=== PATIENT | female | born 1985 | race Caucasian/White ===

== ENCOUNTER 2017-03-11 16:17 | Observation (INO) ==
[2017-03-11] MEDS ORDERED: ACETAMINOPHEN 325 MG TABLET PO PRN (17:26)
[2017-03-11] MEDS ORDERED: ONDANSETRON 4 MG/2 ML VIAL IV PRN (17:28)
[2017-03-11] MEDS ORDERED: SODIUM CHLORIDE 0.9% 1,000 ML IV SCH (17:30)
--- NOTE | 2017-03-11 18:01 | Family Practice History&Phys ---
Assessment and Plan (1) Pelvic pain Status: Acute Current Visit: Yes (2) Anxiety about health Status: Acute Current Visit: Yes (3) Febrile illness Status: Acute Current Visit: Yes History of Present Illness Chief complaint: Pelvic pain, failed outpatient therapy History of present illness: Ms. Dexter Mayfield is a 31 year old female Who came to see me on 03/08/2017. At that time she was complaining that she had had right lower extremity swelling. She showed me a picture of this at the time and it was significantly swollen about 2-3+. Her leg on exam however was almost perfectly normal. She had no swelling. She was concerned about why this happened. She had no pain at that time. But did seem to be very anxious. Admits that she has had a fever over the last couple of months off and on and that she has had some pain in the same leg off and on as well. Again there was no swelling appreciated at that initial visit. She had no rash and no other real complaints except for occasional lightheadedness and mild fatigue with increased thirst. She was also concerned about diabetes as there was a strong family history. I checked for this and she was negative. She was not taking any control pills has no history of venous thrombosis and she also denied any known infection or exposure to ticks or mosquitoes at the time. She does have 3 children that she takes care of by herself. Gets very little support from her ex-'s and she is dating somebody now. States that she has not been sexually active and got all for. Yesterday I did check a urine which was negative. She had no other constitutional symptoms. She came back 2 days later complaining of worsening pain with increased fevers although her temperature in our clinic was perfectly normal and her vital signs were stable. She had no rash no other symptoms except for mild infraumbilical pain. On exam she was slightly tender to palpation of the area and felt like a pelvic exam was warranted which we did. On exam it was noted that her cervix was extremely posterior and with digital palpation she was extremely tender but only equivocally at the cervix. She had more tenderness anteriorly. No vaginal discharge per patient nor did I see any. She had just recently gotten off her period, this past Wednesday. Because of her tenderness in the pelvic area I felt like we should at least attempt to treat her for pelvic inflammatory disease which I did. Also set her up for a ultrasound today which was done and the life support technician stated that she was extremely tender with exam. Lab that I ana 2 days ago revealed a normal CBC, normal CMP, urinalysis which was negative, negative JAMIE, negative d-dimer, hemoglobin A1c of 4.7, Ebstein Good virus negative, TSH was slightly low (do not have the results in front of me), urine negative. Because patient is failed outside therapy will admit her to the hospital, get CT scan repeat some lab and consult appropriate specialty in the morning. Will treat palliatively for pain tonight monitor closely. Should be noted her vital signs have been stable. Differentials include endometriosis, ovarian cyst, pelvic infection, pelvic thrombosis, possible oncological source. Home Medications Medication Instructions Recorded Confirmed Type No Known Home Medications [No 03/11/17 03/11/17 History Known Home Medications] Allergies Allergy/AdvReac Type Severity Reaction Status Date / Time No Known Allergies Allergy Unverified 01/25/17 19:54 12 point system: reviewed and no additional remarkable complaints except as stated - Constitutional Constitutional: Present: as per HPI - EENT Ears: Absent: ear discharge Nose, mouth and throat: Absent: nasal congestion - Cardiovascular Cardiovascular: Absent: chest pain at rest, chest pain with activity - Respiratory Respiratory: Absent: cough, wheezing - Gastrointestinal Gastrointestinal: Present: abdominal pain (Suprapubic area). Absent: melena ( Hemoccult was negative in the clinic) - Genitourinary Genitourinary: Present: dysuria. Absent: abnormal vaginal bleeding, difficulty urinating, vaginal discharge - Musculoskeletal Musculoskeletal: Absent: arthralgias - Neurological Neurological: Present: as per HPI - Psychiatric Psychiatric: Present: anxiety Medical,Surgical,& Family Hx - Medical History Musculoskeletal: History of: Musculoskeletal Problems (gu[place]/pin right femur) Reproductive: History of: Reproductive Problems () - Surgical History Neurologic Surgeries: Surgical HX of: Neurologic Surgery (Non Maligant tumor removed) - Family History Family History: Reports;: Family Cancer (father), Family Diabetes (father) Denies;: Family Heart Disease, Family Hypertension - Social History Smoking Status: Never smoker Frequency of Alcohol Use: None Type of Drug Use: None Exam - Constitutional Vitals: Period Temp Pulse Resp BP Sys/Pisano Pulse Ox Last 24 Hr 99.9 F 93 18 121/70 95 Exam: Generally well-developed female is alert and oriented somewhat anxious concerning her situation HEENT essentially negative Cardiovascular rate regular no gallop or rub Lungs clear bilaterally no shortness of breath chest pain wheezing rales rhonchi Abdomen soft, tender in the suprapubic area. Negative McBurney point tenderness negative Will sign and negative left sided tenderness except that radiated to the suprapubic area. No Pelvic exam as noted above revealed severe tenderness with a posterior cervix. Did not have classical chandelier sign however. Extremities no clubbing no cyanosis or edema at present. Quality Measures - VTE Contraindication to Pharmacological VTE Prophylaxis: Clinical assessment deems Pt at low risk, no prophalaxis needed - Stroke Symptom Onset Unknown: No
[2017-03-11] MEDS: HYDROmorphone 2 MG/1 ML VIAL IV PRN ×2 (18:07→22:19)
[2017-03-11] MEDS: SODIUM CHLORIDE 0.9% 1,000 ML IV SCH (18:10)
[2017-03-11] MEDS: cefTRIAXone 1,000 MG in SODIUM CHLORIDE 0.9% 100 ML IV SCH (18:15)
[2017-03-11 18:23] LABS: Basophils % 0.2 % (0.0-0.8); Hematocrit 34.6 VOL% (35.7-47.0); Hemoglobin 11.2 GM/DL (12.0-16.0); Immature Granulocytes % 0.4 %; Immature Granulocytes Absolute 0.05 #; Lymphocytes # 0.8 10*3/uL (1.4-4.0); Lymphocytes % 6.9 % (21.3-54.2); Mean Corpuscular HGB Conc 32.4 GM/DL (32-36); Mean Corpuscular Hemoglobin 25 PG (27-34); Mean Corpuscular Volume 76.7 FL (87-102); Mean Platelet Volume 8.9 FL (9.6-12.0); Monocytes # 0.4 10*3/uL (0.11-0.8); Monocytes % 2.9 % (1.7-12.7); Neutrophils % 89.6 % (38.7-73.9); Platelet Count 265 T/CUMM (130-400); Red Blood Count 4.51 MC/CUMM (3.8-5.5); Red Cell Distribution Width 15.1 % (9.3-17.3); White Blood Count 12.2 T/CUMM (4-12)
[2017-03-11 18:44] LABS: Albumin 3.9 G/DL (3.4-5.0); Bilirubin,Total 0.9 MG/DL (0.2-1.0); Calcium 9.5 MG/DL (8.5-10.1); Osmolality,Calculated 278.3 MOS/KG (273-304); Potassium 3.9 MMOL/L (3.5-5.1); Total Protein 7.7 G/DL (6.4-8.3)
--- NOTE | 2017-03-11 19:48 | CT Report ---
Exam: CT abdomen pelvis wo/w con Date: 03/11/2017 5:32 PM Comparison: None Indication: Mid pelvic pain abdominal pain Total DLP: 676.5 mGy*cm Technical: No oral contrast was administered. Images were obtained from the lung bases to the iliac crest continuation through the pelvis without and with with 100 cc of Omnipaque 350 with axial sagittal coronal imaging available for review. Dose reduction was performed with decreasing kv and mA and automated exposure Findings: Lung bases: No obvious infiltrates or effusions present. Liver and Spleen: Liver hepatic and portal veins are unremarkable. Mild prominence of the spleen present. Gallbladder and Pancreas: Unremarkable Adrenals: Unremarkable Kidneys: Both kidneys are equally perfused and demonstrate no evidence for obstructive uropathy. The noncontrast study reveals faint calculi bilaterally without obstruction Stomach: Incomplete distended with air-fluid and debris Retroperitoneum: No enlarged lymph nodes. Aorta and IVC: Aorta is unremarkable. A retroaortic left renal vein is patent present a normal variant. Bowel and Mesentery: Moderate stool and debris present no evidence of diverticulosis or diverticulitis or evidence of appendicitis. Pelvis: Bladder: Partially demonstrated with contrast on delayed images. Fluid: No free fluid identified. Lymph nodes: No enlarged lymph nodes. Pelvic organs: Uterus is deviated towards the left. Some thickening of the endometrial is present. Ovarian cystic changes are present bilaterally measuring up to 3.6 and 3.2 cm right, left respectively. Osseous structures: No suspicious appearing osseous abnormalities noted. Previous right hip intramedullary pinning Impression: 1. Bilateral ovarian cysts present. 2. Minimal splenic enlargement 3. Bilateral faint nephrocalcinosis without obstruction. PROCEDURE INTERPRETED AT [facility] DEPARTMENT OF RADIOLOGY Final Report Signed by: Dr. Walter Alvares
[2017-03-11] MEDS: oxyCODONE/ACETAMINOPHEN 5-325 MG TABLET PO PRN (20:41)
[2017-03-11] MEDS: DOCUSATE SODIUM 100 MG CAPSULE PO SCH (20:41)
[2017-03-11 20:55] LABS: Apearance,Urine CLEAR (Clear); Bilirubin,Urine Negative (Negative); Blood, Urine Negative (Negative); Glucose,Urine (UA) Negative (Negative); Ketones,Urine Negative (Negative); Mucus,Urine Occasional /LPF (Occasional); Nitrite,Urine Negative (Negative); Protein,Urine Negative; Squamous Epithelial Cell,Urine Occasional /HPF (0-10); Urine Color Straw (Yellow); Urine Specific Gravity 1.041 (1.001-1.035); Urine Urobilinogen < 2.0 EU/DL (0.2-1.0); WBC,Urine <1 /HPF (0-6)
[2017-03-12] MEDS: HYDROmorphone 2 MG/1 ML VIAL IV PRN ×2 (01:57→05:34)
[2017-03-12] MEDS: SODIUM CHLORIDE 0.9% 1,000 ML IV SCH ×3 (02:03→17:16)
[2017-03-12] MEDS: DOCUSATE SODIUM 100 MG CAPSULE PO SCH ×2 (09:04→23:08)
[2017-03-12] MEDS: oxyCODONE/ACETAMINOPHEN 5-325 MG TABLET PO PRN ×3 (09:56→23:08)
--- NOTE | 2017-03-12 12:53 | Family Practice Progress Note ---
Family Practice - PN: Subj Interval history: Patient seen this morning. She was resting fairly well and has significant pain in her suprapubic area when he. A CT scan was noted. There were no real significant findings except for a bilateral cyst. My goal is to going get a gynecological consult for any further direction. I'm not convinced this is endometriosis but I suppose it could be interstitial cystitis. Her urinalysis was stone cold normal. Her lab revealed a slight elevation of absolute neutrophilic count only. We did do an ultrasound in the clinic which was somewhat incomplete due to pain. But there was only minimal free fluid. She did have follicular cyst of the ovaries with a small amount of free fluid in the cul-de-sac only. I appreciate gynecological specialty. Exam (Progress Note) - Constitutional Vitals: Period Temp Pulse Resp BP Sys/Pisano Pulse Ox Last 24 Hr 97.4 F-99.9 F 45-93 16-20 100-121/61-72 95-99 Exam: Generally well-developed female is alert and oriented somewhat anxious concerning her situation HEENT essentially negative Cardiovascular rate regular no gallop or rub Lungs clear bilaterally no shortness of breath chest pain wheezing rales rhonchi Abdomen soft, tender in the suprapubic area. No inguinal lymphadenopathy is appreciated. Patient voiding well Extremities no clubbing no cyanosis or edema at present. Neurologically fully intact cranial nerves and motor and sensory nerves Results - Labs CBC & BMP: 03/11/17 18:14 03/11/17 18:14 Assessment and Plan (1) Pelvic pain Status: Acute Assessment and plan: 03/12/17: Will get gynecological assistance only. Is difficult Current Visit: Yes (2) Anxiety about health Status: Acute Assessment and plan: 03/12/17: Patient does cry periodically due to "pain". The analgesics give her significant and "very good" relief Current Visit: Yes (3) Febrile illness Status: Acute Assessment and plan: 03/12/17: Afebrile at this time Current Visit: Yes Quality Measures - VTE Contraindication to Pharmacological VTE Prophylaxis: Clinical assessment deems Pt at low risk, no prophalaxis needed - Stroke Symptom Onset Unknown: No
[2017-03-12] MEDS: cefTRIAXone 1,000 MG in SODIUM CHLORIDE 0.9% 100 ML IV SCH (17:38)
--- NOTE | 2017-03-12 17:43 | Consultation ---
Assessment and Plan (1) IBS (irritable bowel syndrome) Status: Acute Assessment and plan: Trial of IM Bentyl overnight. Current Visit: Yes (2) Chronic interstitial cystitis Status: Acute Assessment and plan: Trial of bladder irrigation with solution to sooth bladder mucosa and Pyridium. Current Visit: Yes (3) Stress due to family tension Status: Acute Current Visit: Yes History of Present Illness - Data of Consult Consult date: 03/12/17 Requesting Physician: Loy Gruber - Consult Narrative Reason for consult: abdominal and pelvic pain History of present illness: Ms. Dexter Mayfield is a 31 year old female who has undergone several attempts at outpatient management of severe lower abdominal and pelvic pain and elevated temperature. She has been medically evaluated during this hospitalization along with pertinent lab and ultrasound, all of which are unremarkable. She describes her abdominal pain as being intermittent colicky in a severe enough to bring her to her knees. She also complains of a constant suprapubic burning pain. These have been most dominant during the last week although they have been present to a lesser degree and intermittently for about 3 months. She does admit to being under a stressful situation involving a divorce and child custody issues. CC: Loy Gruber, DO - Home Medications and Allergies Home Medications: Home Medications Medication Instructions Recorded Confirmed Type No Known Home Medications [No 03/11/17 03/11/17 History Known Home Medications] Allergies/Adverse Reactions: Allergies Allergy/AdvReac Type Severity Reaction Status Date / Time No Known Allergies Allergy Unverified 01/25/17 19:54 - Constitutional Constitutional: Present: fever(s) (Intermittent, states up to 103 with spontaneous resolution) - EENT Eyes: Present: as per HPI Nose, mouth and throat: Present: as per HPI - Cardiovascular Cardiovascular: Present: as per HPI. Absent: chest pain at rest, chest pain with activity, diaphoresis, dyspnea - Respiratory Respiratory: Absent: cough, dyspnea, dyspnea on exertion - Gastrointestinal Gastrointestinal: Present: abdominal pain (Described as diffuse, colicky and intermittent associated with severe pain during the peak of cramps.). Absent: constipation, diarrhea, vomiting - Genitourinary Genitourinary: Absent: abnormal vaginal bleeding, difficulty urinating, dysuria , flank pain, menorrhagia, urinary frequency, urinary hesitancy, urinary incontinence (She is having mildly irregular cycles with some dysmenorrhea. Her last menses was approximately 2 weeks ago. She denies deep penetration dyspareunia or dysmenorrhea.) - Musculoskeletal Musculoskeletal: Present: as per HPI - Neurological Neurological: Present: as per HPI - Psychiatric Psychiatric: Present: anxiety - Endocrine Endocrine: Present: as per HPI - Hematologic/Lymphatic Hematologic/Lymphatic: Present: as per HPI Medical,Surgical,& Family Hx - Medical History Musculoskeletal: History of: Musculoskeletal Problems ([place]/pin right femur) Reproductive: History of: Reproductive Problems () - Surgical History Neurologic Surgeries: Surgical HX of: Neurologic Surgery (Non Maligant tumor removed) - Family History Family History: Reports;: Family Cancer (father), Family Diabetes (father) Denies;: Family Heart Disease, Family Hypertension - Social History Smoking Status: Never smoker Frequency of Alcohol Use: None Type of Drug Use: None Exam - Constitutional Vitals: Period Temp Pulse Resp BP Sys/Pisano Pulse Ox Last 24 Hr 97.2 F-98.8 F 45-72 16-20 100-134/61-74 97-99 General appearance: mild distress - Head Head exam: Present: normal inspection - Neck Neck exam: Present: normal inspection - Respiratory Respiratory exam: Absent: accessory muscle use - Cardiovascular Cardiovascular exam: Present: regular rate and rhythm - GI/Abdominal GI/Abdominal exam: Present: distended, hyperactive bowel sounds, tenderness ( Tenderness is noted diffusely with some tympany), soft. Absent: rebound - Extremities Exam Extremities exam: Present: normal inspection - Back Exam Back exam: Present: normal inspection - Neurological Exam Neurological exam: Present: alert, oriented X3 - Psychiatric Psychiatric exam: Present: anxious - Skin Skin exam: Present: normal color, warm, dry Results - Labs CBC & BMP: 03/11/17 18:14 03/11/17 18:14 Quality Measures - VTE Contraindication to Pharmacological VTE Prophylaxis: Clinical assessment deems Pt at low risk, no prophalaxis needed - Stroke Symptom Onset Unknown: No Exam - Constitutional Vitals: Period Temp Pulse Resp BP Sys/Pisano Pulse Ox Last 24 Hr 97.2 F-98.8 F 45-72 16-20 100-134/61-74 97-99 General appearance: mild distress - Head Head exam: Present: normal inspection - Neck Neck exam: Present: normal inspection - Respiratory Respiratory exam: Absent: accessory muscle use - Cardiovascular Cardiovascular exam: Present: regular rate and rhythm - GI/Abdominal GI/Abdominal exam: Present: hyperactive bowel sounds - Genitourinary Genitourinary: external genitalia normal, vagina without discharge, inflammation or lesions, uterus normal size and position, midline and mobile, adnexae without tenderness or masses (Cervix moderately tender to manipulation) , cervical motion tenderness, uterine tenderness (marked isolated bladder tenderness with much less uterine tenderness) - Back Exam Back exam: Present: normal inspection - Psychiatric Psychiatric exam: Present: anxious - Skin Skin exam: Present: normal color, warm, dry
[2017-03-12] MEDS ORDERED: SODIUM BICARB IV ONE (18:00)
[2017-03-12] MEDS ORDERED: SODIUM CHLORIDE 0.9% IV ONE (18:00)
[2017-03-12] MEDS ORDERED: LIDOCAINE 1% IV ONE (18:00)
[2017-03-12] MEDS: DICYCLOMINE 20 MG/2 ML AMP IM SCH ×2 (18:15→23:09)
[2017-03-13] MEDS ORDERED: DICYCLOMINE 20 MG/2 ML AMP IM ONE (05:30)
[2017-03-13] MEDS: oxyCODONE/ACETAMINOPHEN 5-325 MG TABLET PO PRN (05:39)
[2017-03-13] MEDS ORDERED: KETOROLAC 15 MG/1 ML VIAL IV ONE (08:00)
[2017-03-13] MEDS ORDERED: PHENAZOPYRIDINE 95 MG TABLET PO SCH (08:00)
[2017-03-13] MEDS: DOCUSATE SODIUM 100 MG CAPSULE PO SCH (08:36)
[2017-03-13 08:39] VITALS: BP 109/61
--- NOTE | 2017-03-13 09:32 | Discharge Summary ---
Hospital Course - Hospital Course Hospital Course: Patient came in with lower suprapubic pain. We did a CT scan on her, ultrasound and the findings were equivocal at best. There were no evidence of specific infection. She was seen in consult with gynecology who felt like she probably had interstitial cystitis. He did do a irrigation of the bladder and the patient got some relief. She is desiring narcotics fairly frequently. She has been afebrile the entire time. Her CBC is normal and chemistries were normal as well. She also had a negative urinalysis and abdominal pelvic CT was grossly normal. She is alert. While walking there she is asleep and states that "every 4 hours it starts hurting her". I am going to discharge her home on some medicine and told her if this does not getting better we will get a urological consult but I do not think there is anything further to do as far as workup is concerned. It should be noted her serum test was negative. We will have her follow-up next week. Diagnosis - Discharge Diagnosis (1) Pelvic pain Status: Acute (2) Anxiety about health Status: Acute (3) Febrile illness Status: Acute Specialty Discharge - Follow Up or Referrals Follow up with: Loy Gruber DO [Physician] - 1 Week Discharge Plan - Discharge Data Disposition: Disch To Home/Self Care Condition at Discharge: Stable Discharge Diet: advance to your usual diet Activity: resume usual activities as tolerated Hygiene: no restrictions Weight Bearing at Discharge: full weight bearing Driving: no restrictions Contact your physician if you experience:: fever over 101, Nausea/Vomiting, pain uncontrolled by pain medications - Discharge Medications New Naproxen [Naproxen Tab] 500 mg PO BID PRN #30 tablet PRN Reason: Pain Tramadol HCl [Ultram] 50 mg PO Q8H PRN #45 tablet PRN Reason: Abdominal Pain Methen/Sod Phos/Meth Blue/Hyos [Urogesic Blue] 1 tablet PO TID PRN #14 tablet PRN Reason: Bladder Spasm - Follow Up or Referral Follow Up: Loy Gruber DO [Physician] - 1 Week - Forms/Instructions Forms: Acute Care Work/School Release Exam - Constitutional Vitals: Period Temp Pulse Resp BP Sys/Pisano Pulse Ox Last 24 Hr 97.0 F-98.2 F 49-69 16-20 109-134/57-74 95-98 Discharge Results Procedures and tests throughout hospitalization: Pending Orders 03/11/17 18:14 Blood Culture Stat Labs on day of discharge: Preliminary micro results at discharge 03/11/17 18:14 Blood Culture - Preliminary Blood No growth at 1 day 03/11/17 18:14 Blood Culture - Preliminary Blood No growth at 1 day DS: Provider Date of admission: 03/11/17 16:38 Primary care physician: . No PCP Attending physician on admission: Loy Gruber DO Consults: 03/12/17 06:46 Consult to Physician [CONS] Routine Comment: pelvic pain,fever Consulting Provider: Walter Pappas Consult Notification Comment: jose franklin called him on his cell @ [phone] Discharging clinician: Loy Gruber DO
== END 2017-03-13 10:24 | disposition home or self-care (01) ==
LOC: N.2E
PROVIDERS: ADMIT Family Medicine; ATTEND Family Medicine

== ENCOUNTER 2017-07-08 10:44 | Inpatient (IN) ==
[2017-07-08] MEDS ORDERED: PANTOPRAZOLE 40 MG VIAL IV STA (11:11)
[2017-07-08] MEDS ORDERED: LOPERAMIDE 2 MG CAPSULE PO STA (11:11)
[2017-07-08] MEDS ORDERED: SODIUM CHLORIDE 0.9% 1,000 ML IV STA (11:11)
[2017-07-08] MEDS ORDERED: METOCLOPRAMIDE 10 MG/2 ML VIAL IV STA (11:11)
[2017-07-08] MEDS ORDERED: metroNIDAZOLE INJ 500 MG in PREMIX 1 EACH IV STA (11:11)
[2017-07-08] MEDS ORDERED: DICYCLOMINE 20 MG/2 ML AMP IM ONE ×2 (11:11→12:03)
--- NOTE | 2017-07-08 11:21 | Emergency Department Note ---
Arrival - Arrival Chief Complaint: GI Bleed/Rectal Stated Complaint: rectal bleed,pain and uncontrollable BM ED Nursing Triage Note: Pt c/o dark red blood in her stool with abd and rectal pain x 1 month that is getting worse. Mode of Arrival: Ambulatory Limitations: No Limitations Source: Patient Time Seen by Provider: 07/08/17 11:10 - History of Present Illness HPI Narrative: This 31-year-old white female presents with 1 month of progressive diarrhea to the point that she is having fecal incontinence. She states that the bowel movements are watery with streaky red blood but no melena, associated intermittently with abdominal cramping as well as rectal burning. Notable during this month has been distention of her abdomen and actual weight gain. This is despite an active exercise program and a strict diet. 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 Currently she appears in no acute medical distress Onset (ago): month(s) (Patient presents 1 month since onset of symptoms) Date of Last Menstrual Period: went off last wk Allergies/Adverse Reactions: Allergies Allergy/AdvReac Type Severity Reaction Status Date / Time No Known Allergies Allergy Verified 03/27/17 07:55 Home Medications: Home Medications Medication Instructions Recorded Confirmed Type Methadone HCl [Methadone Intensol] 120 mg PO QAM 07/08/17 07/08/17 History Review of System - Review of System 12 point system: reviewed and no additional remarkable complaints except as stated - Review of System Constitutional: Present: as per HPI Gastrointestinal: Present: as per HPI Genitourinary female: Present: as per HPI Medical,Surgical,& Family Hx - Medical History Musculoskeletal: History of: Musculoskeletal Problems ([place]/pin right femur) Reproductive: History of: Reproductive Problems () Other: History of: Miscellaneous Medical Problems (Prior history of drug abuse) - Surgical History Neurologic Surgeries: Surgical HX of: Neurologic Surgery (Non Maligant tumor removed) - Family History Family History: Reports;: Family Cancer (father), Family Diabetes (father) Denies;: Family Heart Disease, Family Hypertension - Social History Smoking Status: Never smoker Exam Physical Examination: GENERAL: Well developed, well nourished white female in no acute distress. HEENT: Normocephalic. No trauma. Moist mucous membranes. EOMI. PERRLA. ENT NML NECK: Supple. No adenopathy. CARDIAC: Regular. No murmurs. Heart rate 78 CHEST: Clear to auscultation. No respiratory distress. O2 sat 98% ABDOMEN: Soft. Nontender. Active bowel sounds. EXTREMITIES: No trauma. Normal ROM. No pedal edema. SKIN: No diaphoresis. No rash. NEURO: Alert. Neuro intact. No focal deficits. Vital Signs: Vital Signs Temperature 97.9 F 07/08/17 12:14 Pulse Rate 78 07/08/17 12:14 Respiratory Rate 20 07/08/17 12:14 Blood Pressure 95/40 07/08/17 12:14 O2 Sat by Pulse Oximetry 100 07/08/17 11:40 Course - Reevaluation(s) Reevaluation #1: Discussed with patient the need for evaluation and delineation of her colonic problem. - Consultations Consultation #1: Discussed with hospitalist service who will admit for further evaluation treatment. Results - Labs CBC & BMP: 07/08/17 11:58 07/08/17 11:58 Labs: I reviewed the laboratory noted the mild anemia. - Diagnostic Findings Procedure: CT Abdomen and Pelvis: image reviewed by me, report reviewed by me ( Circumferential thickening of the rectal wall consistent with inflammatory bowel disease) Disposition Clinical Impression: Colitis/proctitis, Intractable diarrhea Case discussed with: patient Disposition: Still a Patient Condition: Stable Time of Disposition: 14:42
[2017-07-08] MEDS ORDERED: METOCLOPRAMIDE 10 MG/2 ML VIAL ONE (12:03)
[2017-07-08] MEDS ORDERED: LOPERAMIDE 2 MG CAPSULE ONE (12:03)
[2017-07-08] MEDS ORDERED: metroNIDAZOLE 500 MG/100 ML PREMIX IV ONE (12:03)
[2017-07-08] MEDS ORDERED: PANTOPRAZOLE 40 MG VIAL IV ONE (12:03)
[2017-07-08 12:40] LABS: Basophils % 0.4 % (0.0-0.8); Eosinophils # 0.2 10*3/uL (0.0-0.87); Eosinophils % 3.1 % (0.00-10.9); Hematocrit 35.4 VOL% (35.7-47.0); Hemoglobin 11.4 GM/DL (12.0-16.0); Immature Granulocytes % 0.4 %; Immature Granulocytes Absolute 0.02 #; Lymphocytes # 2.4 10*3/uL (1.4-4.0); Lymphocytes % 43.4 % (21.3-54.2); Mean Corpuscular HGB Conc 32.2 GM/DL (32-36); Mean Corpuscular Hemoglobin 25 PG (27-34); Mean Corpuscular Volume 76.6 FL (87-102); Mean Platelet Volume 9.6 FL (9.6-12.0); Monocytes # 0.3 10*3/uL (0.11-0.8); Neutrophils # 2.7 10*3/uL (1.4-7.4); Neutrophils % 47.7 % (38.7-73.9); Platelet Count 292 T/CUMM (130-400); Red Blood Count 4.62 MC/CUMM (3.8-5.5); Red Cell Distribution Width 14.3 % (9.3-17.3); White Blood Count 5.6 T/CUMM (4-12)
[2017-07-08 12:52] LABS: PT Patient Result 10.4 SECS; Partial Thromboplastin Time 26.3 SECS (0-40)
[2017-07-08 13:18] LABS: Alanine Aminotransferase 27 U/L (13-56); Albumin 3.8 G/DL (3.4-5.0); Alkaline Phosphatase 55 U/L (45-117); Aspartate Amino Transferase 28 U/L (0-37); Bilirubin,Total < 0.39 MG/DL (0.2-1.0); Blood Urea Nitrogen 11 MG/DL (7-18); Calcium 9.1 MG/DL (8.5-10.1); Glucose 64 MG/DL (74-106); Osmolality,Calculated 271.7 MOS/KG (273-304); Potassium 4.2 MMOL/L (3.5-5.1); Sodium 138 MMOL/L (136-145); Total Protein 7.7 G/DL (6.4-8.3)
--- NOTE | 2017-07-08 13:53 | CT Report ---
CT of the abdomen and pelvis with intravenous contrast. Oral contrast was also administered. Axial images were obtained with sagittal and coronal 2-D reconstructions. Comparison is made to a previous exam of March 11, 2017. The heart is normal in size. The lung bases are clear. There is no pericardial or pleural effusion. The liver is normal in size and density. No focal liver lesions are identified. There is no intra or extrahepatic biliary ductal dilatation. The spleen is mildly enlarged, similar to the previous study. No focal splenic lesions are noted. There is no adrenal enlargement. No pancreatic abnormality is seen. The kidneys are normal in size, location, and contour. No hydronephrosis. No space-occupying masses. The abdominal aorta is of normal caliber. No free air is seen within the peritoneal cavity. The stomach contour is normal. The loops of small intestine are unremarkable. The terminal ileum and appendix have a normal appearance. The colon contains formed fecal material to the level of the sigmoid, where there is a mixture of fluid and formed fecal material present. There is rectal wall thickening. The uterus is upper limits of normal in size. No ovarian enlargement is seen. There is an intramedullary guillaume within the right femur. The bony structures are otherwise unremarkable. Impression: 1. Mild stable enlargement of the spleen. 2. Mild prominence of the uterus. 3. Circumferential wall thickening involving the rectum, likely related to inflammation. When clinically appropriate, a rectal exam may be helpful. 4. From the level of the sigmoid colon to the rectum, there is a mixture of fluid and formed fecal material. Proximal to this, formed stool is seen within the colon. The CT exam was performed using one or more of the following dose reduction techniques: Automated exposure control, adjustment of the mA and/or kV according to patient size, or use of iterative reconstruction technique. PROCEDURE INTERPRETED AT [facility] DEPARTMENT OF RADIOLOGY Final Report Signed by: Dr. Dana Mckay
--- NOTE | 2017-07-08 15:31 | Hospitalist History & Physical ---
Assessment and Plan (1) Inflammatory bowel disease Status: Acute Assessment and plan: Topher Stack IV consult GI, stool studies Current Visit: Yes (2) IV drug abuse Status: Acute Assessment and plan: Continue methadone avoid narcotics. Current Visit: Yes History of Present Illness Chief complaint: loose stool History of present illness: Ms. Mayfield is a 31 year old female presents to the emergency room because of fecal incontinence. She said for the last month she has had rectal emptying all on its own. Her stool is constantly formed like a snake and she has a lot of crampy pain. There was blood and mucus in her bowel movements yesterday and today. CT of her abdomen shows wall thickening in the rectum and sigmoid area. Question inflammatory bowel disease. Patient currently does not have insurance. Reports no fevers no actual diarrhea no nausea no vomiting. Patient reports having to change her panties several times a day due to fecal incontinence. Home Medications Medication Instructions Recorded Confirmed Type Methadone HCl [Methadone Intensol] 120 mg PO QAM 07/08/17 07/08/17 History Allergies Allergy/AdvReac Type Severity Reaction Status Date / Time No Known Allergies Allergy Verified 03/27/17 07:55 Medical,Surgical,& Family Hx - Medical History Neurology: History of: Seizures (Withdrawal seizures) Respiratory: History of: Obstructive Sleep Apnea Musculoskeletal: History of: Musculoskeletal Problems (guillaume/pin right femur) Hematology: History of: Anemia Reproductive: History of: Reproductive Problems () Other: History of: Miscellaneous Medical Problems (Prior history of drug abuse with both Lortabs and Dilaudid) - Surgical History Neurologic Surgeries: Surgical HX of: Neurologic Surgery (Non Maligant tumor removed) - Family History Family History: Reports;: Family Cancer (father), Family Diabetes (father) Denies;: Family Heart Disease, Family Hypertension - Social History Smoking Status: Never smoker Frequency of Alcohol Use: None Type of Drug Use: Opiates, Intravenous Drug Use Marital Status: Single Lives With:: Alone Functional capacity: independent ambulation - Constitutional Constitutional: Present: stops breathing during sleep. Absent: fatigue, fever(s ), headache(s), weight loss - EENT Eyes: Absent: blurry vision, diplopia Ears: Absent: decreased hearing, ear discharge Nose, mouth and throat: Absent: headache(s), sore throat - Cardiovascular Cardiovascular: Absent: chest pain at rest, dyspnea, dyspnea on exertion - Respiratory Respiratory: Absent: dyspnea, dyspnea on exertion - Gastrointestinal Gastrointestinal: Present: abdominal pain, fecal incontinence, hematochezia, loose stools. Absent: constipation, diarrhea, dyspepsia, dysphagia, nausea, vomiting - Genitourinary Genitourinary: Absent: difficulty urinating, dysuria - Musculoskeletal Musculoskeletal: Absent: arthralgias - Neurological Neurological: Absent: headache(s), syncope - Psychiatric Psychiatric: Absent: anxiety, depression - Endocrine Endocrine: Present: fatigue. Absent: cold intolerance, heat intolerance - Hematologic/Lymphatic Hematologic/Lymphatic: Absent: easy bleeding, easy bruising Exam - Constitutional Vitals: Period Temp Pulse Resp BP Sys/Pisano Pulse Ox Last 24 Hr 97.9 F-97.9 F 59-78 13-20 95-103/40-58 99-100 General appearance: normal weight, no acute distress - Head Head exam: Present: normal inspection, normocephalic - Eye Eye exam: Present: EOMI. Absent: scleral icterus Pupils: Present: MYNOR, normal accommodation - ENT ENT exam: Present: normal exam, normal external ear exam - Neck Neck exam: Absent: lymphadenopathy, thyromegaly - Respiratory Respiratory exam: Present: clear to auscultation bilaterally. Absent: rhonchi, wheezes - Cardiovascular Cardiovascular exam: Present: regular rate and rhythm. Absent: systolic murmur - GI/Abdominal GI/Abdominal exam: Present: normal bowel sounds, soft. Absent: tenderness - Extremities Exam Extremities exam: Present: normal inspection, normal capillary refill - Neurological Exam Neurological exam: Present: alert, oriented X3, CN II-XII intact, reflexes normal. Absent: motor sensory deficit - Psychiatric Psychiatric exam: Present: normal affect, normal mood - Skin Skin exam: Present: normal color, warm Results - Labs CBC & BMP: 07/08/17 11:58 07/08/17 11:58 Lab Results: I have reviewed the past 24 hour labs - Diagnostic Findings Procedure: CT Abdomen and Pelvis: report reviewed by me (CT of abdomen shows inflammation and thickening in the sigmoid to the rectum area.)
[2017-07-08] MEDS ORDERED: ACETAMINOPHEN 325 MG TABLET PO PRN (17:56)
[2017-07-08] MEDS: methylPREDNISolone SOD SUC 40 MG/1 ML VIAL IV SCH (18:23)
[2017-07-08] MEDS: ENOXAPARIN 40 MG/0.4 ML SYRINGE SUBCUT SCH (18:24)
[2017-07-08] MEDS: LEVOFLOXACIN INJ 750 MG in PREMIX 1 EACH IV SCH (18:25)
[2017-07-08 18:31] LABS: Magnesium 2.2 MG/DL (1.8-2.4); Thyroid Stimulating Hormone 1.37 uIU/ml (0.358-3.74)
[2017-07-08] MEDS: metroNIDAZOLE INJ 500 MG in PREMIX 1 EACH IV SCH (21:26)
[2017-07-08] MEDS: DEXTROSE 5% NACL 0.9% 1,000 ML IV SCH (21:27)
[2017-07-09] MEDS: methylPREDNISolone SOD SUC 40 MG/1 ML VIAL IV SCH ×4 (03:23→18:03)
[2017-07-09] MEDS: metroNIDAZOLE INJ 500 MG in PREMIX 1 EACH IV SCH ×3 (04:54→16:32)
[2017-07-09] MEDS: METHADONE 10 MG TABLET PO SCH (05:20)
[2017-07-09 05:54] LABS: Calcium 8.5 MG/DL (8.5-10.1); Osmolality,Calculated 282.3 MOS/KG (273-304); Potassium 4.4 MMOL/L (3.5-5.1)
[2017-07-09 06:32] LABS: Basophils % 0.2 % (0.0-0.8); Hematocrit 34.9 VOL% (35.7-47.0); Hemoglobin 11.7 GM/DL (12.0-16.0); Immature Granulocytes % 0.5 %; Immature Granulocytes Absolute 0.03 #; Lymphocytes # 0.7 10*3/uL (1.4-4.0); Lymphocytes % 10.5 % (21.3-54.2); Mean Corpuscular HGB Conc 33.5 GM/DL (32-36); Mean Corpuscular Hemoglobin 26 PG (27-34); Monocytes % 0.5 % (1.7-12.7); Neutrophils # 5.5 10*3/uL (1.4-7.4); Neutrophils % 88.3 % (38.7-73.9); Platelet Count 290 T/CUMM (130-400); Red Blood Count 4.59 MC/CUMM (3.8-5.5); White Blood Count 6.2 T/CUMM (4-12)
[2017-07-09] MEDS: DEXTROSE 5% NACL 0.9% 1,000 ML IV SCH ×2 (08:16→15:01)
[2017-07-09] MEDS: PANTOPRAZOLE 40 MG TABLET PO SCH (08:36)
--- NOTE | 2017-07-09 09:10 | Gastrointestinal Consult Note ---
<Donna Klein - Last Filed: 07/09/17 09:06> Assessment and Plan (1) Abdominal pain Status: Acute Assessment and plan: 07/09-week history of abdominal bloating and lower abdominal cramping with fecal incontinence. Reported 20 pound weight gain since onset. No prior GI disease history. Stool studies are negative. Obtain colonoscopy report from [facility]. Plan an addendum to followed by Dr. Saravia. Current Visit: Yes History of Present Illness Chief complaint: Abdominal bloating, incontinence History of present illness: Ms. Mayfield is a 31 year old female who was admitted to the hospital on yesterday with complaints of fecal incontinence and abdominal bloating. Patient states she was in her usual state of health until approximately 6 weeks ago. She states that she is very active and eats healthy however 6 weeks ago she noticed that she began to have some abdominal bloating. She also states she noted to have some onset of lower intermittent abdominal cramping. Approximately 3 weeks ago, patient states that she also began having multiple episodes of fecal incontinence throughout the day and night. She states she would have one normal bowel movement in the mornings however following that she would have multiple small episodes of loose, "snake like" stools throughout the day and night. She has noticed on a few occasions to have blood streaking in the stools but denies melena or significant hematochezia. Patient states that she has gained approximately 20 pounds since onset over the last 4-6 weeks without any changes in her diet. She has no prior GI history however states approximately 3 years ago she did have a colonoscopy done at [facility] after findings of blood in her stool. Patient states there were no significant findings noted on the colonoscopy. She denies any nausea or vomiting. Denies any fever or chills. On admission, she had a CT of her abdomen with contrast which showed circumferential wall thickening of the rectum as well as mixture of fluid and formed fecal material from the sigmoid colon to the rectum with formed stool seen proximally to this. WBCs are unremarkable. She has no family history of GI disease that she is aware of. Stools are negative for occult blood, WBCs, and C. difficile. She denies any alcohol or tobacco use. Home Medications Medication Instructions Recorded Confirmed Type Methadone HCl [Methadone Intensol] 120 mg PO QAM 07/08/17 07/08/17 History Allergies Allergy/AdvReac Type Severity Reaction Status Date / Time No Known Allergies Allergy Verified 03/27/17 07:55 Medical,Surgical,& Family Hx - Medical History Psychological: History of: Psychiatric/Substance Abuse Tx Neurology: History of: Seizures (Withdrawal seizures) Respiratory: History of: Obstructive Sleep Apnea Musculoskeletal: History of: Musculoskeletal Problems (guillaume/pin right femur) Hematology: History of: Anemia Reproductive: History of: Reproductive Problems () Other: History of: Miscellaneous Medical Problems (Prior history of drug abuse with both Lortabs and Dilaudid) - Surgical History Neurologic Surgeries: Surgical HX of: Neurologic Surgery (Non Maligant tumor removed) - Family History Family History: Reports;: Family Cancer (father), Family Diabetes (father) Denies;: Family Heart Disease, Family Hypertension - Social History Smoking Status: Never smoker Frequency of Alcohol Use: None Type of Drug Use: None, Opiates, Intravenous Drug Use 12 point system: reviewed and no additional remarkable complaints except as stated - Constitutional Constitutional: Present: as per HPI, weight gain - EENT Eyes: Present: as per HPI Ears: Present: as per HPI Nose, mouth and throat: Present: as per HPI - Cardiovascular Cardiovascular: Present: as per HPI - Respiratory Respiratory: Present: as per HPI - Gastrointestinal Gastrointestinal: Present: as per HPI, abdominal pain, diarrhea, fecal incontinence, loose stools - Genitourinary Genitourinary: Present: as per HPI - Musculoskeletal Musculoskeletal: Present: as per HPI - Neurological Neurological: Present: as per HPI - Psychiatric Psychiatric: Present: as per HPI - Endocrine Endocrine: Present: as per HPI - Hematologic/Lymphatic Hematologic/Lymphatic: Present: as per HPI Exam - Constitutional Vitals: Period Temp Pulse Resp BP Sys/Pisano Pulse Ox Last 24 Hr 97.6 F-98 F 49-78 13-20 95-135/40-82 95-100 General appearance: normal weight, no acute distress - Head Head exam: Present: normal inspection, normocephalic - Eye Eye exam: Present: other (Lids and conjunctivae are unremarkable). Absent: scleral icterus - ENT ENT exam: Present: normal exam, normal oropharynx - Neck Neck exam: Present: normal inspection - Respiratory Respiratory exam: Present: clear to auscultation bilaterally. Absent: rales, rhonchi, wheezes - Cardiovascular Cardiovascular exam: Present: regular rate and rhythm. Absent: diastolic murmur , JVD, systolic murmur - GI/Abdominal GI/Abdominal exam: Present: normal bowel sounds, distended, soft. Absent: ascites, mass, organomegaly, tenderness - Extremities Exam Extremities exam: Present: normal inspection, full ROM - Back Exam Back exam: Present: normal inspection - Neurological Exam Neurological exam: Present: alert, oriented X3 - Psychiatric Psychiatric exam: Present: normal affect, normal mood - Skin Skin exam: Present: normal color, warm, dry Results - Labs CBC & BMP: 07/09/17 04:04 07/09/17 04:04 Lab Results: I have reviewed the past 24 hour labs - Diagnostic Findings Procedure: CT Abdomen and Pelvis: report reviewed by me <Walter Saravia - Last Filed: 07/09/17 14:28> History of Present Illness History of present illness: Ms. Mayfield is a 31 year old female Exam - Constitutional Vitals: Period Temp Pulse Resp BP Sys/Pisano Pulse Ox Last 24 Hr 97.6 F-98 F 54-70 16-18 98-135/52-79 90-100 Results - Labs CBC & BMP: 07/09/17 04:04 07/09/17 04:04
--- NOTE | 2017-07-09 16:08 | Hospitalist Progress Note ---
Assessment and Plan (1) Inflammatory bowel disease Status: Acute Assessment and plan: Levaquin, Flagyl IV stool studies are negative, colonoscopy on Wednesday or as an outpatient. Current Visit: Yes (2) IV drug abuse Status: Acute Assessment and plan: Continue methadone avoid narcotics. Current Visit: Yes Hospitalist: Subjective Interval history: Patient has informed the methadone clinic that she is in the hospital. We will increase her diet to full liquid diet. If inflammation is better we can plan colonoscopy as an outpatient. Exam - Constitutional Vitals: Period Temp Pulse Resp BP Sys/Pisano Pulse Ox Last 24 Hr 97.6 F-98 F 59-70 16-18 98-116/52-72 90-100 Exam: Heart Rate-[RRR] Lungs-[CTAB] GI-[+bs soft, abdomen seems more distended today than last night.] Ext-[no edema] Neuro [Motor 5/5], [she is sedated after methadone.] psych [normal mood and affect] General [no acute distress] Results - Labs CBC & BMP: 07/09/17 04:04 07/09/17 04:04 Lab Results: I have reviewed the past 24 hour labs Labs: Stool cultures all negative.
[2017-07-09] MEDS: SODIUM CHLORIDE 0.9% 1,000 ML IV SCH (16:32)
[2017-07-09] MEDS: LEVOFLOXACIN INJ 750 MG in PREMIX 1 EACH IV SCH (18:02)
[2017-07-09] MEDS: ENOXAPARIN 40 MG/0.4 ML SYRINGE SUBCUT SCH (18:03)
[2017-07-09] MEDS: ZALEPLON 5 MG CAPSULE PO PRN (21:03)
[2017-07-10] MEDS: metroNIDAZOLE INJ 500 MG in PREMIX 1 EACH IV SCH ×5 (00:05→23:06)
[2017-07-10] MEDS: methylPREDNISolone SOD SUC 40 MG/1 ML VIAL IV SCH ×4 (02:19→17:29)
[2017-07-10] MEDS: SODIUM CHLORIDE 0.9% 1,000 ML IV SCH ×4 (04:10→23:05)
[2017-07-10] MEDS: METHADONE 10 MG TABLET PO SCH (05:47)
[2017-07-10 06:16] LABS: Hematocrit 30.8 VOL% (35.7-47.0); Hemoglobin 9.7 GM/DL (12.0-16.0); Immature Granulocytes % 0.4 %; Immature Granulocytes Absolute 0.04 #; Lymphocytes # 1.1 10*3/uL (1.4-4.0); Lymphocytes % 11.6 % (21.3-54.2); Mean Corpuscular HGB Conc 31.5 GM/DL (32-36); Mean Corpuscular Hemoglobin 24 PG (27-34); Mean Platelet Volume 10.4 FL (9.6-12.0); Monocytes # 0.2 10*3/uL (0.11-0.8); Monocytes % 2.3 % (1.7-12.7); Neutrophils # 7.8 10*3/uL (1.4-7.4); Neutrophils % 85.7 % (38.7-73.9); Platelet Count 205 T/CUMM (130-400); Red Cell Distribution Width 14.8 % (9.3-17.3); White Blood Count 9.1 T/CUMM (4-12)
[2017-07-10 06:42] LABS: Osmolality,Calculated 282.8 MOS/KG (273-304); Potassium 3.7 MMOL/L (3.5-5.1)
--- NOTE | 2017-07-10 08:15 | Gastrointestinal Progress Note ---
Assessment and Plan - Time spent with patient Time spent with patient: Greater than 30 minutes (1) Abdominal pain Status: Acute Current Visit: Yes (2) Diarrhea Status: Acute Current Visit: Yes (3) Other specified counseling Status: Acute Current Visit: Yes Exam (Progress Note) - Constitutional Vitals: Period Temp Pulse Resp BP Sys/Pisano Pulse Ox Last 24 Hr 97.5 F-98.6 F 52-73 16-18 98-125/52-78 90-99 Results - Labs CBC & BMP: 07/10/17 04:28 07/10/17 04:28 Note Addendum: PLEASE NOTE -- automatic citation of patient information is unavoidable in this electronic note. I have made a reasonable effort to review the information cited , but it is not a part of my evaluation, impression, or recommendation unless specifically discussed in the dictated text that follows. As well, voice recognition software was used in the creation of this clinical note. Reasonable effort was made to identify and correct gross errors. Despite proofreading, errors in tray worker may be present, including nonsense verbiage at times. If you encounter such an error, please contact me at [phone] for discussion and correction. -- Thea Chief complaint: abdominal pain Subjective: the patient is a 31-year-old female seen for follow-up of abdominal pain. She was admitted through the emergency department two days ago with complaint of one month's progressive diarrhea with occasional blood, fecal incontinence at times, and intermittent abdominal cramping. CT of the abdomen at the time of admission showed circumferential wall thickening in the rectum. The patient denies infectious contact, tainted ingestion, medication changes, supplement or recreational drug use, unusual dietary practices, and change in lifestyle or living conditions generally. She is a recovering addict (opiates) and currently uses methadone daily with no recent change in dosing. She is unaware of any prior diagnosis of viral hepatitis, HIV, or sexually transmitted disease. She has been treated empirically with broad-spectrum antibiotic and volume resuscitation. With this she reports some improvement but continues with some abdominal cramping and multiple bowel movements with incontinence between. She is taking oral nutrition and tolerating that. She does not want to discharge before getting a definitive diagnosis if possible. Medications: PRN analgesia per protocol, PRN constipation control per protocol, Lovenox 40 mg daily, Levaquin seven heard 50 mg daily, Flagyl 5 mg four times daily, methadone 120 mg daily, Zofran 4 mg every four hours as needed, Protonix 40 mg daily, normal saline 150 mL per hour, Sonata 10 mg daily Review of Symptoms: 12 point review of symptoms was negative except as noted above Physical examination: Vital Signs: Current vital signs reviewed. General Appearance: sitting on the edge of the bed. Comfortable. No acute distress. Head: Normocephalic. Eyes: no scleral icterus. No scleral injection. No conjunctival pallor. Oral Cavity: Odor of breath was normal. No drooling was observed. Lips showed no abnormalities. Lungs: Respiration rhythm and depth was normal. Cardiovascular: Heart rate and rhythm were normal. Abdomen: abdomen was mildly distended. Abdominal auscultation revealed no abnormalities. Ascites was not discovered. Abdominal palpation revealed no tenderness and no hepatosplenomegaly. Musculoskeletal System: musculoskeletal system was grossly normal. Neurological: level of consciousness was normal. Speech was normal. No coordination/cerebellum abnormalities were noted. Skin: Gen. appearance was normal. Color and pigmentation were normal. No skin lesions were appreciated. Laboratory: white blood count 9.1, hemoglobin 9.7, hematocrit 31, MCV 77, platelets 205, segmented neutrophils 86%, INR 1.0, PT 10.4, sodium 144, potassium 3.7, chloride 111, CO2 25, BUN five, creatinine 0.6, ALT 27, AST 28, total bilirubin 0.4, alkaline phosphatase 55, total protein 7.7, albumin 3.8, amylase 74, lipase 232, urine test negative, viral hepatitis panel negative, HIV screen negative, recent EBV infection (January/February of this year) Microbiology: Clostridium difficile toxin negative, fecal white blood cells negative, fecal occult blood testing negative Radiology: -- CT abdomen/pelvis, 07/08/17: mild stable enlargement of the spleen; mild prominence of the uterus; circumferential wall thickening involving the rectum; stool in the entire colon Impressions: #1. Abdominal pain -- the differential diagnosis includes infectious enterocolitis, inflammatory bowel disease, and others. Stool based testing has been negative to date. Continued antibiotic is reasonable. Patient will need endoscopic evaluation with timing based on clinical progress. We would consider doing this on Wednesday or Wednesday presuming she remains in the hospital. Otherwise , she would need close follow-up for outpatient #2. Diarrhea -- as discussed above.. #3. Other specified counseling -- Patient seen for greater than 30 minutes. Greater than 50% of this time was spent counseling regarding differential diagnosis, likely diagnosis,, diagnostic and therapeutic options, risks, benefits, and alternatives to procedures and medications, informed consent, and plan of care generally. Patient has expressed understanding and wishes to proceed. Recommendations: -- continued volume and electrolyte -- continued antibiotic -- colonoscopy with timing based on clinical progress, likely Wednesday -- we will continue to follow
[2017-07-10] MEDS: PANTOPRAZOLE 40 MG TABLET PO SCH (08:34)
--- NOTE | 2017-07-10 17:04 | Hospitalist Progress Note ---
Assessment and Plan (1) Inflammatory bowel disease Status: Acute Assessment and plan: colonoscopy on Wednesday, cont abx and steroids for now Current Visit: Yes (2) IV drug abuse Status: Acute Assessment and plan: Continue methadone avoid narcotics. Current Visit: Yes (3) IONA (obstructive sleep apnea) Status: Acute Assessment and plan: she needs outpatient sleep study Current Visit: Yes Hospitalist: Subjective Interval history: Patient wants to stay in the hospital for a colonoscopy on Wednesday. Her abdomen is still a little bit more distended today. Her pain is controlled. She still continues to have a snake like stools. Exam - Constitutional Vitals: Period Temp Pulse Resp BP Sys/Pisano Pulse Ox Last 24 Hr 97.5 F-98.6 F 42-73 16-18 100-125/56-79 94-99 Exam: Heart Rate-[RRR] Lungs-[CTAB] GI-[+bs soft, abdomen seems more distended Ext-[no edema] Neuro [Motor 5/5], [alert and oriented 3] psych [normal mood and affect] General [no acute distress] Results - Labs CBC & BMP: 07/10/17 04:28 07/10/17 04:28 Lab Results: I have reviewed the past 24 hour labs Labs: Stool studies are all negative. Stool for occult blood negative stool for C. difficile negative stool for culture negative
[2017-07-10] MEDS: LEVOFLOXACIN INJ 750 MG in PREMIX 1 EACH IV SCH (18:40)
[2017-07-10] MEDS: ONDANSETRON 4 MG/2 ML VIAL IV PRN (18:40)
[2017-07-10] MEDS: ZALEPLON 5 MG CAPSULE PO PRN (20:35)
[2017-07-11] MEDS: methylPREDNISolone SOD SUC 40 MG/1 ML VIAL IV SCH ×4 (01:38→16:58)
[2017-07-11] MEDS: metroNIDAZOLE INJ 500 MG in PREMIX 1 EACH IV SCH ×4 (04:02→21:32)
[2017-07-11] MEDS: METHADONE 10 MG TABLET PO SCH (05:25)
[2017-07-11 07:05] LABS: Basophils % 0.1 % (0.0-0.8); Hematocrit 31.4 VOL% (35.7-47.0); Hemoglobin 9.9 GM/DL (12.0-16.0); Immature Granulocytes % 1.8 %; Immature Granulocytes Absolute 0.17 #; Lymphocytes % 11.2 % (21.3-54.2); Mean Corpuscular HGB Conc 31.5 GM/DL (32-36); Mean Corpuscular Hemoglobin 24 PG (27-34); Mean Platelet Volume 9.8 FL (9.6-12.0); Monocytes # 0.3 10*3/uL (0.11-0.8); Monocytes % 3.5 % (1.7-12.7); Neutrophils # 7.7 10*3/uL (1.4-7.4); Neutrophils % 83.4 % (38.7-73.9); Platelet Count 293 T/CUMM (130-400); Red Blood Count 4.08 MC/CUMM (3.8-5.5); Red Cell Distribution Width 15.3 % (9.3-17.3); White Blood Count 9.2 T/CUMM (4-12)
[2017-07-11 07:35] LABS: Calcium 7.7 MG/DL (8.5-10.1); Osmolality,Calculated 281.1 MOS/KG (273-304)
[2017-07-11] MEDS: PANTOPRAZOLE 40 MG TABLET PO SCH (08:29)
[2017-07-11] MEDS: SODIUM CHLORIDE 0.9% 1,000 ML IV SCH (08:29)
--- NOTE | 2017-07-11 09:21 | Gastrointestinal Progress Note ---
Assessment and Plan (1) Abdominal pain Status: Acute Current Visit: Yes (2) Diarrhea Status: Acute Current Visit: Yes (3) Other specified counseling Status: Acute Current Visit: Yes Exam (Progress Note) - Constitutional Vitals: Period Temp Pulse Resp BP Sys/Pisano Pulse Ox Last 24 Hr 97.7 F-98.2 F 39-45 16-18 123-141/69-81 90-97 Results - Labs CBC & BMP: 07/11/17 06:48 07/11/17 06:48 Note Addendum: PLEASE NOTE -- automatic citation of patient information is unavoidable in this electronic note. I have made a reasonable effort to review the information cited , but it is not a part of my evaluation, impression, or recommendation unless specifically discussed in the dictated text that follows. As well, voice recognition software was used in the creation of this clinical note. Reasonable effort was made to identify and correct gross errors. Despite proofreading, errors in jewel bearing turner may be present, including nonsense verbiage at times. If you encounter such an error, please contact me at for discussion and correction. -- Thea Chief complaint: abdominal pain Subjective: the patient is a 31-year-old female seen for follow-up of abdominal pain. She reports continued discomfort and bloating as previously described. She is tolerating oral nutrition. She continues with loose stool. She would like to proceed with colonoscopy for evaluation and we will accomplish this tomorrow. Medications: PRN analgesia per protocol, PRN constipation control per protocol, Lovenox 40 mg daily, Levaquin seven heard 50 mg daily, Flagyl 5 mg four times daily, methadone 120 mg daily, Zofran 4 mg every four hours as needed, Protonix 40 mg daily, normal saline 150 mL per hour, Sonata 10 mg daily Review of Symptoms: 12 point review of symptoms was negative except as noted above Physical examination: Vital Signs: Current vital signs reviewed. General Appearance: Lying in bed. Comfortable. No acute distress. Head: Normocephalic. Eyes: no scleral icterus. No scleral injection. No conjunctival pallor. Oral Cavity: Odor of breath was normal. No drooling was observed. Lips showed no abnormalities. Lungs: Respiration rhythm and depth was normal. Cardiovascular: Heart rate and rhythm were normal. Abdomen: abdomen was mildly distended. Abdominal auscultation revealed no abnormalities. Ascites was not discovered. Abdominal palpation revealed no tenderness and no hepatosplenomegaly. Musculoskeletal System: musculoskeletal system was grossly normal. Neurological: level of consciousness was normal. Speech was normal. No coordination/cerebellum abnormalities were noted. Skin: Gen. appearance was normal. Color and pigmentation were normal. No skin lesions were appreciated. Laboratory: white blood count 9.2, hemoglobin 9.9, hematocrit 31.4, platelets 293 Microbiology: Clostridium difficile toxin negative, fecal white blood cells negative, fecal occult blood testing negative Radiology: -- CT abdomen/pelvis, 07/08/17: mild stable enlargement of the spleen; mild prominence of the uterus; circumferential wall thickening involving the rectum; stool in the entire colon Impressions: #1. Abdominal pain -- the differential diagnosis is unchanged. We will continue the current medication regimen and plan endoscopic evaluation tomorrow. We will follow-up with further recommendations pending result of same. #2. Diarrhea -- as discussed above. #3. Other specified counseling -- Patient seen for less than 30 minutes. Greater than 50% of this time was spent counseling regarding differential diagnosis, likely diagnosis,, diagnostic and therapeutic options, risks, benefits, and alternatives to procedures and medications, informed consent, and plan of care generally. Patient has expressed understanding and wishes to proceed. Recommendations: -- continued volume and electrolyte management -- continued antibiotic and steroid -- colonoscopy Wednesday -- we will continue to follow with you. Dr. Saravia will resume GI care for this patient tomorrow.
--- NOTE | 2017-07-11 11:20 | Hospitalist Progress Note ---
Assessment and Plan (1) Inflammatory bowel disease Status: Acute Assessment and plan: colonoscopy on Wednesday, cont abx and steroids for now Current Visit: Yes (2) IV drug abuse Status: Acute Assessment and plan: Continue methadone avoid narcotics. Current Visit: Yes (3) IONA (obstructive sleep apnea) Status: Acute Assessment and plan: wakes up fatigued, bradycardia, and stops breathing when she sleeps, she needs outpatient sleep study with Dr. Abdalla Current Visit: Yes Hospitalist: Subjective Interval history: patient extremely anxious about her colonoscopy tomorrow. Abdomen seems more distended. I reassured her that everything would be fine. She has severe IONA which needs outpatient testing. Exam - Constitutional Vitals: Period Temp Pulse Resp BP Sys/Pisano Pulse Ox Last 24 Hr 97.7 F-98.2 F 39-45 16-18 123-141/69-81 90-97 Exam: Heart Rate-[dominic] Lungs-[CTAB] GI-[+bs distended Ext-[no edema] Neuro [Motor 5/5], [alert and oriented 3] psych [anxious mood and affect] General [no acute distress] Results - Labs CBC & BMP: 07/11/17 06:48 07/11/17 06:48 Lab Results: I have reviewed the past 24 hour labs
[2017-07-11] MEDS ORDERED: POLYETHYLENE GLYCOL POWDER 255 GM BOTTLE PO ONE (11:40)
[2017-07-11] MEDS ORDERED: BISACODYL 5 MG TABLET PO ONE (14:47)
[2017-07-11] MEDS: LEVOFLOXACIN INJ 750 MG in PREMIX 1 EACH IV SCH (16:58)
[2017-07-11] MEDS: MAGNESIUM CITRATE 300 ML BOTTLE PO SCH ×2 (20:50→23:40)
[2017-07-11] MEDS: ZALEPLON 5 MG CAPSULE PO PRN (20:53)
[2017-07-12] MEDS: ONDANSETRON 4 MG/2 ML VIAL IV PRN (00:31)
[2017-07-12] MEDS: methylPREDNISolone SOD SUC 40 MG/1 ML VIAL IV SCH ×2 (01:22→09:14)
[2017-07-12] MEDS: metroNIDAZOLE INJ 500 MG in PREMIX 1 EACH IV SCH ×2 (03:48→09:58)
[2017-07-12] MEDS: METHADONE 10 MG TABLET PO SCH (05:04)
[2017-07-12] MEDS: MAGNESIUM CITRATE 300 ML BOTTLE PO SCH ×2 (05:25→13:42)
[2017-07-12] MEDS ORDERED: MAGNESIUM CITRATE 300 ML BOTTLE PO ONE (06:00)
[2017-07-12] MEDS: PANTOPRAZOLE 40 MG TABLET PO SCH ×2 (09:41→13:49)
[2017-07-12] MEDS ORDERED: MIDAZOLAM 2 MG/2 ML VIAL ONE (12:18)
--- NOTE | 2017-07-12 12:31 | History and Physical Update ---
History and Physical Update - History and Physical H&P was reviewed, the patient examined and there: are no changes in the patients condition since last H&P was completed. - Physical Exam Mental Status: alert and oriented Heart: regular rate and rhythm Lung: clear to auscultation Abdomen: within normal limits Vitals: within normal limits
--- NOTE | 2017-07-12 12:50 | Operative Note ---
Date of procedure: 07/12/17 Pre-op diagnosis: Chronic diarrhea, abnormal rectosigmoid colon on CT Procedure: Procedure note: Colonoscopy with random colon biopsies Physician: Dr. Alex Saravia Brief clinical abstract: 31-year-old female has had 3 and half week history of diarrhea with 8-10 loose stools per day associated with fecal incontinence. Stool studies for infectious etiology have been negative. She had CT abdomen on admission with rectosigmoid colon thickening noted last week. Endoscopic findings: After informed consent was obtained, the patient was placed in the left lateral decubitus position. Digital rectal exam was performed with no palpable abnormalities felt. Pediatric videocolonoscope was inserted into the rectum and advanced to the cecum without difficulty. Terminal ileum was intubated and distal 4-5 cm visualized with no abnormality seen. The endoscope was withdrawn back into the cecum. Retroflex view within the cecum was performed back to the level of the hepatic flexure. The endoscope was advanced back to the cecum and on withdrawal colonic mucosa was carefully examined. Bowel prep was of good quality. Withdrawal time was over 6 minutes duration. Vascular pattern throughout the colon appeared normal. No polyps, diverticula, or inflammatory changes were seen in the colon. Random biopsies were obtained throughout the colon to evaluate her diarrhea. The endoscope was withdrawn in the rectum with retroflex view showing no abnormality. The endoscope was removed and she appeared to tolerate the procedure well. Impression: Normal exam of colon and terminal ileum Plan: Await pathology findings. Advance diet and could probably discharge if tolerating. Anesthesia: other (tiva) Surgeon / Physician: Walter Saravia Estimated blood loss: minimal Specimens: other (Random colon biopsies) Condition: stable Disposition: post procedure unit Results - Labs CBC & BMP: 07/11/17 06:48 07/11/17 06:48 Discharge Plan - Discharge Medications No Action Methadone HCl [Methadone Intensol] 120 mg PO QAM - Follow Up or Referral - Forms/Instructions
--- NOTE | 2017-07-12 13:00 | Anesthesia Post-Op ---
Anesthesia Post OP - Post Ansesthetic Evaluation Patient seen in post op: Yes Resp: within normal limits CV: within normal limits Mental: within normal limits Temp: within normal limits [id number]: within normal limits Nausea and Vomiting: within normal limits Pain: within normal limits
[2017-07-12 13:23] VITALS: BP 144/96
--- NOTE | 2017-07-12 15:31 | Discharge Summary ---
Hospital Course - Hospital Course Hospital Course: Discharge diagnosis: Abdominal discomfort with possible colitis Opioid addiction Sleep apnea The patient presented to the hospital for evaluation of abdominal pain. She had a CT scan that showed evidence of inflammatory bowel disease. She also had a history suggestive of sleep apnea. She underwent colonoscopy on the day of discharge. This was fairly normal. Outpatient sleep study can be scheduled as an outpatient. She will follow-up with her local physician regarding the GI complaints. Medication reconciliation has been performed. Resume home diet. Activity as tolerated. This note was completed using [employer] voice recognition software. There may be marine diesel technician errors as a result. Discharge Plan - Discharge Data Disposition: Disch To Home/Self Care Discharge Diet: advance to your usual diet Activity: resume usual activities as tolerated Hygiene: no restrictions Weight Bearing at Discharge: full weight bearing Driving: no restrictions - Discharge Medications Continue Methadone HCl [Methadone Intensol] 120 mg PO QAM - Follow Up or Referral - Forms/Instructions Exam - Constitutional Vitals: Period Temp Pulse Resp BP Sys/Pisano Pulse Ox Last 24 Hr 97.4 F-98.7 F 37-96 12-18 133-177/73-103 93-100 Vital signs are noted above. Abdomen is soft without any distention. She is awake and alert. Discharge Results Procedures and tests throughout hospitalization: Pending Orders 07/08/17 11:58 Occult Blood, Stool Routine DS: Provider Date of admission: 07/09/17 13:49 Primary care physician: . No PCP Attending physician on admission: Luanne Pang MD Consults: 07/08/17 17:56 Consult to Physician [CONS] Routine Comment: sigmoid to rectum abnormal Consulting Provider: Walter Saravia Person Notified: BEA DURAN Date Notified: 07/09/17 Time Notified: 10:11 Discharging clinician: Mateusz Estrada MD Expected date of discharge: 07/12/17
--- NOTE | 2017-07-13 18:17 | Pathology Report from [facility] ---
[facility] ACCESSION # : [id number] PATIENT NAME : Ximena Santa ORDERING DR : PARI GARVIN MD CLINICAL HX: Abdominal pain - Diarrhea POST-OP DX: Chronic diarrhea SPECIMEN INFO: Random colon biopsies GROSS DESCRIPTION: The specimen is received in formalin labeled with the patients name and consists of a 1.0 x 0.5 cm aggregate of [place] tissue. Submitted in one cassette. DIAGNOSIS FOR XIMENA SANTA: COLON, RANDOM, BIOPSIES: Scattered superficial neutrophilic debris, c/w resolving acute self-limited colitis. No evidence of active colitis, cryptitis, granuloma formation, dysplasia or malignancy. Tryptase immunostain is negative for increased mast cells. COLLECTED DATE: 07/12/2017 [facility] REPORT DATE: 07/13/2017 ELECTRONICALLY SIGNED BY: Sandra Carrion M.D. 07/13/2017 - 12:40:40 [facility]
== END 2017-07-12 16:40 | disposition home or self-care (01) | DRG 392 ==
LOC: N.ED 10:44 → N.EDINP 10:44 → N.5E 18:05 → SUATTDRO 07-09 13:49
PROVIDERS: ADMIT Internal Medicine; ATTEND Internal Medicine Geriatric Medicine
PROC: COLONBX (2017-07-12 11:05)

== ENCOUNTER 2020-03-13 11:49 | Observation (INO) ==
[2020-03-13 12:49] LABS: Eosinophils # 0.1 10*3/uL (0.0-0.87); Eosinophils % 0.8 % (0.00-10.9); Hematocrit 27.8 VOL% (35.7-47.0); Immature Granulocytes % 0.3 %; Immature Granulocytes Absolute 0.02 #; Lymphocytes % 14.5 % (21.3-54.2); Mean Corpuscular HGB Conc 32.4 GM/DL (32-36); Mean Corpuscular Volume 84.2 FL (87-102); Mean Platelet Volume 9.6 FL (9.6-12.0); Monocytes % 5.5 % (1.7-12.7); Neutrophils % 78.9 % (38.7-73.9); Platelet Count 235 T/CUMM (130-400); Red Cell Distribution Width 13.9 % (9.3-17.3); White Blood Count 6.6 T/CUMM (4-12)
[2020-03-13 13:14] LABS: Albumin 2.6 G/DL (3.4-5.0); Bilirubin,Total 0.4 MG/DL (0.2-1.0); Calcium 8.1 MG/DL (8.5-10.1); Osmolality,Calculated 267.1 MOS/KG (273-304); Total Protein 6.3 G/DL (6.4-8.3)
[2020-03-13] MEDS ORDERED: SODIUM CHLORIDE 0.9% 2,000 ML IV STA (13:28)
[2020-03-13] MEDS ORDERED: ACETAMINOPHEN 325 MG TABLET ONE (13:50)
[2020-03-13] MEDS ORDERED: ACETAMINOPHEN 325 MG TABLET PO ONE (14:00)
[2020-03-13 14:15] LABS: Apearance,Urine CLOUDY (Clear); Bilirubin,Urine Negative (Negative); Blood, Urine Negative (Negative); Glucose,Urine (UA) Negative (Negative); Ketones,Urine Negative (Negative); Mucus,Urine Occasional /LPF (Occasional); Nitrite,Urine Negative (Negative); Protein,Urine Negative; RBC,Urine 10 /HPF (0-4); Squamous Epithelial Cell,Urine Occasional /HPF (0-10); Urine Specific Gravity 1.018 (1.001-1.035); WBC,Urine 235 /HPF (0-6)
[2020-03-13 14:16] LABS: Urine Color Yellow (Yellow)
[2020-03-13 14:28] LABS: Barbiturates Screen,Urine Negative (Negative); Benzodiazepines Screen,Urine Positive (Negative); Cannabinoid Screen,Urine Positive (Negative); Opiate Screen,Urine Negative (Negative); Phencyclidine Screen,Urine Negative (Negative)
[2020-03-13] MEDS ORDERED: cefTRIAXone 1,000 MG VIAL ONE (14:43)
[2020-03-13] MEDS ORDERED: cefTRIAXone 1,000 MG in SODIUM CHLORIDE 0.9% 100 ML IV STA (15:23)
[2020-03-13] MEDS ORDERED: GLUCAGON 1 MG VIAL IM PRN (16:54)
[2020-03-13] MEDS ORDERED: ACETAMINOPHEN 325 MG TABLET PO PRN (16:54)
[2020-03-13] MEDS ORDERED: DOCUSATE SODIUM 100 MG CAPSULE PO PRN (16:54)
[2020-03-13] MEDS ORDERED: NICOTINE 21 MG/24 HR PATCH TRANSDERM PRN (16:54)
[2020-03-13] MEDS ORDERED: ONDANSETRON 4 MG/2 ML VIAL IV PRN (16:54)
[2020-03-13] MEDS ORDERED: DEXTROSE 10% 250 ML BAG IV PRN (16:54)
[2020-03-13] MEDS ORDERED: ENOXAPARIN 40 MG/0.4 ML SYRINGE SUBCUT SCH (17:00)
[2020-03-13] MEDS ORDERED: SODIUM CHLORIDE 0.9% 1,000 ML IV STA (17:36)
[2020-03-13] MEDS ORDERED: THIAMINE INJ 100 MG, FOLIC ACID INJ 1 MG, MULTIVITAMIN INJ 10 ML in SODIUM CHLORIDE 0.9... IV ONE (18:00)
[2020-03-13] MEDS: SODIUM CHLORIDE 0.9% 1,000 ML IV SCH (18:34)
[2020-03-13] MEDS: PIPERACILLIN/TAZOBACTAM 3,375 MG in SODIUM CHLORIDE 0.9% 100 ML IV SCH (18:35)
[2020-03-14] MEDS: PIPERACILLIN/TAZOBACTAM 3,375 MG in SODIUM CHLORIDE 0.9% 100 ML IV SCH ×2 (02:03→09:36)
[2020-03-14 04:50] LABS: Eosinophils # 0.1 10*3/uL (0.0-0.87); Eosinophils % 3.8 % (0.00-10.9); Hematocrit 27.8 VOL% (35.7-47.0); Hemoglobin 8.8 GM/DL (12.0-16.0); Immature Granulocytes % 0.3 %; Immature Granulocytes Absolute 0.01 #; Lymphocytes # 1.3 10*3/uL (1.4-4.0); Lymphocytes % 43.6 % (21.3-54.2); Mean Corpuscular HGB Conc 31.7 GM/DL (32-36); Mean Corpuscular Volume 86.1 FL (87-102); Monocytes % 10.4 % (1.7-12.7); Neutrophils % 41.9 % (38.7-73.9); Platelet Count 193 T/CUMM (130-400); Red Blood Count 3.23 MC/CUMM (3.8-5.5); Red Cell Distribution Width 14.4 % (9.3-17.3); White Blood Count 2.9 T/CUMM (4-12)
[2020-03-14 05:12] LABS: Bilirubin,Total 0.4 MG/DL (0.2-1.0); Calcium 7.3 MG/DL (8.5-10.1); Osmolality,Calculated 277.3 MOS/KG (273-304); Thyroid Stimulating Hormone 0.299 uIU/ml (0.358-3.74); Total Protein 4.8 G/DL (6.4-8.3)
[2020-03-14 05:36] LABS: Atypical Lymphocytes Few; Eosinophils 3 % (0-10); Hypochromasia 1+; Lymphocytes 39 % (20-55); Microcytosis Slight; Platelet Estimate Adequate; Segmented Neutrophils 50 % (50-85); Total Cells Counted 100
[2020-03-14] MEDS: SODIUM CHLORIDE 0.9% 1,000 ML IV SCH ×2 (08:28→08:29)
[2020-03-14 08:45] VITALS: BP 94/56
[2020-03-14] MEDS ORDERED: VENLAFAXINE XR 75 MG CAPSULE PO SCH (09:00)
[2020-03-14] MEDS ORDERED: PANTOPRAZOLE 40 MG TABLET PO SCH (09:00)
== END 2020-03-14 11:10 | disposition home or self-care (01) ==
LOC: N.EDINP 11:49 → N.ED 11:49 → N.TELEN 17:45
PROVIDERS: ADMIT Internal Medicine; ATTEND Internal Medicine